=== PATIENT | female | born 1950 ===

== ENCOUNTER 2022-06-04 15:00 | Outpatient (REF) | payer MEDICARE, SELFPAY | END 2022-06-04 15:01 | disposition home or self-care (01) | LOC: HO.LAB 15:00 | PROVIDERS: Visit Provider Internal Medicine | DX: N30.00 Acute cystitis without hematuria (principal) | CPT/HCPCS: 87086; 87088; 87186 ==

== ENCOUNTER 2022-08-16 11:16 | Outpatient (REF) | payer MEDICARE, SELFPAY | END 2022-08-16 11:17 | disposition home or self-care (01) | LOC: HO.LNP 11:16 | PROVIDERS: Visit Provider Physician Assistant | DX: R30.0 Dysuria (principal) | CPT/HCPCS: 87086 ==

== ENCOUNTER 2023-01-20 09:59 | Outpatient (AMB) | payer MEDICARE, SELFPAY ==
--- NOTE | 2023-01-20 10:14 | AM.OFFWIN_ITS ---
Intake Vital Signs 01/20/23 10:35 Height 4 ft 11 in Weight 146 lb 8 oz BMI 29.6 BP 130/70 Blood Pressure Location Rt brachial Position Sitting Pulse 98 Pulse Source Pulse Oximeter Temp 98.4 F Temp Source Oral Pulse Oximetry (%) 97 Oxygen Delivery Method Room Air Intake Visit Reasons: EST/UTI(lobby) Intake Note: pt is here for c/o uti Patient Tobacco Use Status: Never used Tobacco Allergies No Known Allergies Allergy (Verified 01/20/23 10:35) Do you need a note to return to daycare/school/sports/work: Yes HPI EST/UTI(lobby) HPI Details 72-year-old female patient presents toda y with a 4 day history of urinary frequency and burning. Reports some body aches but denies any fever/chills. Increasing water intake without relief. Denies any vaginal symptoms. Denies abdominal or flank pain. PFSH Medical History Dysuria Social History Patient Tobacco Use Status: Never used Tobacco Review of Systems Const All systems reviewed & are unremarkable except as noted in HPI and below Physical Exam Vital Signs: Last Vital Signs Temp 98.4 F 01/20/23 10:35 Pulse 98 01/20/23 10:35 BP 130/70 01/20/23 10:35 Pulse Ox 97 01/20/23 10:35 Oxygen Delivery Method Room Air 01/20/23 10:35 BMI result Body Mass Index 29.6 Const General: cooperative, healthy appearing and comfortable Resp Effort & Inspection: normal respiratory effort Auscultation: clear to auscultation bilaterally Cardio Jugular venous distension: no JVD Palpation: normal PMI Rate: regular rate Rhythm: regular rhythm General: Yes bladder normal to palpation and Yes no CVA tenderness Bimanual exam- vagina & uterus: bladder normal to palpation Back/Spine/Pelvis Back: no CVA tenderness Skin General skin exam: no rashes or lesions noted Extrem General: Yes capillary refill normal Psych Appearance: grossly normal Mental Status: mental status grossly normal Speech and movement: Normal speech and movement present Results AMB Urinalysis, Automated UA Leukoctes 15 Enrique/uL Last Edit by Olivia Hoover CMA on 01/20/23 10:15 UA Nitrite Negative Last Edit by Olivia Hoover, [employer]LECT[employer] ACCOUNTING MACHINE OPERATOR on 01/20/23 10:15 UA Urobilinogen 0.2 mg/dL Last Edit by Olivia Hoover, ELECTR[employer] ACCOUNTING MACHINE OPERATOR on 01/20/23 10:15 UA Protein 0 mg/dL Last Edit by Olivia Hoover, ELECTR[employer] ACCOUNTING MACHINE OPERATOR on 01/20/23 10:15 UA pH 6.0 Last Edit by Olivia Hoover, ELECTRIC ACCOUNTING MACHINE OPERATOR on 01/20/23 10:15 UA Blood 0 Curtis/uL Last Edit by Olivia Hoover, ELECTRIC ACCOUNTING MACHINE OPERATOR on 01/20/23 10:15 UA Specific [place] 1.020 Last Edit by Olivia Hoover, ELECTRIC ACCOUNTING MACHINE OPERATOR on 01/20/23 10:1 5 UA Ketone Negative Last Edit by Olivia Hoover, ELECTRIC ACCOUNTING MACHINE OPERATOR on 01/20/23 10:15 UA Bilirubin 0 mg/dL Last Edit by Olivia Hoover, ELECTRIC ACCOUNTING MACHINE OPERATOR on 01/20/23 10:15 UA Glucose 0 mg/dL Last Edit by Olivia Hoover, ELECTRIC ACCOUNTING MACHINE OPERATOR on 01/20/23 10:15 Results Reviewed Results Reviewed: Laboratory Last Values Urine pH (Auto) 6.0 01/20/23 10:14 Specific [place] (Auto) 1.020 01/20/23 10:14 Urine Protein (Auto) 0 mg/dL 01/20/23 10:14 Glucose (UA)(Auto) 0 mg/dL 01/20/23 10:14 Urine Ketones (Auto) Negative 01/20/23 10:14 Urine Blood (Auto) 0 Curtis/uL 01/20/23 10:14 Urine Nitrite (Auto) Negative 01/20/23 10:14 Urine Bilirubin (Auto) 0 mg/dL 01/20/23 10:14 Urine Urobilinogen (Auto) 0.2 mg/dL 01/20/23 10:14 Leukocyte Esterase (Auto) 15 Enrique/uL 01/20/23 10:14 Assessment & Plan Assessment & Plan (1) Urinary tract infection: Code(s): N39.0 - Urinary tract infection, site not specified Qualifiers: Urinary tract infection type: acute cystitis Hematuria presence: without hematuria Qualified Code(s): N30.00 - Acute cystitis without hematuria Plan: Macrobid x5 days. Also prescribed pyridium. Reviewed indications, use, possible side effects of medication. Reviewed increasing fluid intake. May take Tylenol as needed. Advised to return to the clinic for further eval if she does not improve with treatment. Orders: Orders AMB Urinalysis Automated Today Z13.9 - Encounter for screening, unspecified Medications: New phenazopyridine 200 mg PO TID PRN 6 tabs 0RF pain N30.00 - Acute cystitis without hematuria nitrofurantoin macrocrystal must administer with a meal/food 100 mg PO BID 5 days 10 caps 0RF N30.00 - Acute cystitis without hematuria Coding Level of Care Code Est Pt Level 3 (33295) Diagnoses Acute cystitis without hematuria N30.00 Urinary tract infection type: acute cystitis Hematuria presence: without hematuria
[2023-01-20 10:35] VITALS: BP 130/70; PULSE 98; TEMP 36.9; O2SAT 97; BMI 29.6
== END 2023-01-20 10:50 | disposition home or self-care (01) ==
PROVIDERS: Visit Provider Nurse Practitioner Family
DX: N30.00 Acute cystitis without hematuria (principal)
CPT/HCPCS: 81003; 99213

== ENCOUNTER 2023-08-11 11:38 | Outpatient (AMB) | payer MEDICARE, SELFPAY ==
--- NOTE | 2023-08-11 12:43 | AM.OFFWIN_ITS ---
Intake Vital Signs 08/11/23 12:44 Height 4 ft 11 in Weight 150 lb BMI 30.3 BP 150/70 H Blood Pressure Location Lt brachial Position Sitting Pulse 75 Pulse Source Pulse Oximeter Temp 97.6 F Temp Source Temporal Artery Scan Pulse Oximetry (%) 97 Oxygen Delivery Method Room Air Intake Visit Reasons: Est/ uti (lobby) Intake Note: pt is here today for UTI started 2 days ago Patient Tobacco Use Status: Never used Tobacco Allergies No Known Allergies Allergy (Verified 08/11/23 12:50) Do you need a note to return to daycare/school/sports/work: No HPI HPI Comments History of Present Illness Details 73 y/o female patient who presents to [facility] with c/o Urinary s ymptoms x 2 days. PFSH Medical History Dysuria Social History Patient Tobacco Use Status: Never used Tobacco Review of Systems Const All systems reviewed & are unremarkable except as noted in HPI and below Physical Exam Vital Signs: Last Vital Signs Temp 97.6 F 08/11/23 12:44 Pulse 75 08/11/23 12:44 BP 150/70 H 08/11/23 12:44 Pulse Ox 97 08/11/23 12:44 Oxygen Delivery Method Room Air 08/11/23 12:44 BMI result Body Mass Index 30.3 Const General: comfortable and no acute distress Orientation/consciousness: patient oriented x3 General: Yes no CVA tenderness Back/Spine/Pelvis Back: no CVA tenderness Neuro General: patient oriented x3, gait normal and moves all extremities Psych Speech and movement: Normal speech and movement present Results AMB Urinalysis, Automated UA Leukoctes 500 Enrique/uL Last Edit by Aniket Devi MA on 08/11/23 13:27 UA Nitrite Positive Last Edit by Aniket Devi MA on 08/11/23 13:27 UA Urobilinogen 2 mg/dL Last Edit by Aniket Devi MA on 08/11/23 13:27 UA Protein 0 mg/dL Last Edit by Aniket Devi MA on 08/11/23 13:27 UA pH 6.0 Last Edit by Aniket Devi MA on 08/11/23 13:27 UA Blood 10 Curtis/uL Last Edit by Aniket Devi MA on 08/11/23 13:27 UA Specific [place] 1.010 Last Edit by Aniket Devi MA on 08/11/23 13:27 UA Ketone Positive Last Edit by Aniket Devi MA on 08/11/23 13:27 UA Bilirubin 2 mg/dL Last Edit by Aniket Devi MA on 08/11/23 13:27 UA Glucose 0 mg/dL Last Edit by Aniket Dvei MA on 08/11/23 13:27 Results Reviewed Results Reviewed: Laboratory Last Values Urine pH (Auto) 6.0 08/11/23 13:25 Specific [place] (Auto) 1.010 08/11/23 13:25 Urine Protein (Auto) 0 mg/dL 08/11/23 13:25 Glucose (UA)(Auto) 0 mg/dL 08/11/23 13:25 Urine Ketones (Auto) Positive 08/11/23 13:25 Urine Blood (Auto) 10 Curtis/uL 08/11/23 13:25 Urine Nitrite (Auto) Positive 08/11/23 13:25 Urine Bilirubin (Auto) 2 mg/dL 08/11/23 13:25 Urine Urobilinogen (Auto) 2 mg/dL 08/11/23 13:25 Leukocyte Esterase (Auto) 500 Enrique/uL 08/11/23 13:25 Assessment & Plan Assessment & Plan (1) Acute cystitis: Code(s): N30.00 - Acute cystitis without hematuria Qualifiers: Hematuria presence: without hematuria Qualified Code(s): N30.00 - Acute cystitis without hematuria Plan: - Hydrate with plenty of water Medications: Discontinued nitrofurantoin macrocrystal must administer with a meal/food Discontinued Reason: Patient Completed Course 100 mg PO BID 5 days 10 caps 0RF N30.00 - Acute cystitis without hematuria Coding Level of Care Code Est Pt Level 3 (52289) Diagnoses Acute cystitis without hematuria N30.00 Hematuria presence: without hematuria Time Spent (min) 15
[2023-08-11 12:44] VITALS: BP 150/70; PULSE 75; TEMP 36.4; O2SAT 97; BMI 30.3
== END 2023-08-11 13:39 | disposition home or self-care (01) ==
PROVIDERS: PCP Internal Medicine; Visit Provider Nurse Practitioner Family
DX: N30.00 Acute cystitis without hematuria (principal)
CPT/HCPCS: 99213